=== PATIENT | male | born 1960 | race American Indian/Alaskan Native ===

== ENCOUNTER 2022-01-20 11:59 | Outpatient (CLI) | payer OTHER ==
--- NOTE | 2022-01-20 13:14 | XRay Report ---
CHEST 2 VIEWS INDICATION / CLINICAL INFORMATION: POSITIVE PPD SKIN TEST. COMPARISON: None available. FINDINGS: SUPPORT DEVICES: None. HEART / MEDIASTINUM: The heart is mildly enlarged. Pulmonary vasculature is normal. LUNGS / PLEURA: No significant pulmonary or pleural abnormality. No pneumothorax. ADDITIONAL FINDINGS: No significant additional findings. IMPRESSION: No acute findings. No radiographic evidence of active tuberculosis. Signer Name: Damaso Canchola MD Signed: 01/20/2022 1:09 PM Workstation Name: [employer]
== END 2022-01-20 12:00 | disposition home or self-care (01) ==
LOC: XRAY 11:59
PROVIDERS: ATTEND Family Medicine
DX: I51.7 Cardiomegaly (principal); A15.9 Respiratory tuberculosis unspecified
CPT/HCPCS: 71046